=== PATIENT | female | born 1985 | race Caucasian/White ===

== ENCOUNTER 2016-06-09 20:24 | Emergency (ER) | payer BC ==
[~2016-06-09] VITALS: Ht 162.6 cm; Wt 49.0 kg
[~2016-06-09 20:24] MED LIST: OXYC-57 PO
[2016-06-09 20:33] VITALS: TEMP 37.4; Ht 162.6 cm; Wt 49.0 kg
[2016-06-09] MEDS ORDERED: LORAZEPAM 2 MG/ML 1 ML VIAL IV STA (20:41)
[2016-06-09 20:52] VITALS: O2SAT 98
[2016-06-09] MEDS ORDERED: AZAT50TA5 PO (21:14)
[2016-06-09] MEDS ORDERED: VEDO1INJ INJ (21:14)
[2016-06-09 21:27] LABS: BASO % 0.5 %; BASO ABS # 0.04 K/uL (0-0.2); COMPLETE YES; EOS % 0.5 %; HEMATOCRIT 38.1 % (37-47); IG% 0.1 %; LYMPH % 13.9 %; LYMPH ABS # 1.18 K/uL (1.2-3.4); MEAN CELL VOLUME 94.1 fL (80-100); MEAN CORPUSCULAR HEMOGLOBIN 32.8 pg (25-34); MEAN CORPUSCULAR HGB CONC 34.9 g/dl (32-36); MEAN PLATELET VOLUME 10.6 fL (7.4-10.4); MONO % 4.4 %; NEUT % 80.6 %; PLATELET COUNT 320 K/uL (130-400); RED BLOOD COUNT 4.05 M/uL (4.2-5.4); WHITE BLOOD COUNT 8.46 K/uL (4.8-10.8)
[2016-06-09 21:44] LABS: PREG INTERNAL NEGATIVE QC NEG CLEAR BACKGROUND; PREG INTERNAL POSITIVE QC POS CONTROL LINE
[2016-06-09 21:47] LABS: BUN/CREATININE RATIO 13.6 (10-20); CALCIUM 8.9 mg/dl (8.5-10.1); CREATININE 0.75 mg/dl (0.60-1.20); POTASSIUM 3.8 mmol/L (3.5-5.1)
[2016-06-09 21:57] LABS: THYROID STIMULATING HORMONE 3.33 uIu/ml (0.300-4.500)
--- NOTE | 2016-06-09 22:29 | DIAGNOSTIC IMAGING REPORT ---
CHEST 2 VIEWS ROUTINE CLINICAL HISTORY: Cough. Pneumonia. COMPARISON STUDY: No previous studies for comparison. FINDINGS: The cardiac and mediastinal contours are normal. There is no evidence of focal pulmonary consolidation. There is no evidence of failure. No pleural effusions are visualized.[ IMPRESSION: No active disease in the chest. Electronically signed by: Andres Carolina M.D. 06/09/2016 10:27 PM Dictated Date/Time: 06/09/2016 10:26 PM
[2016-06-09] MEDS ORDERED: ATIVAN 1MG HOMEPACK PO ONE (22:45)
[2016-06-09 22:51] VITALS: BP 110/62; PULSE 94; O2SAT 99
--- NOTE | 2016-06-09 23:21 | EMERGENCY ROOM VISIT NOTE ---
History Report prepared by Manuel: Mellissa Mitchell Under the Supervision of: Dr. Marciano Villarreal M.D. First contact with patient: 20:29 Chief Complaint: OTHER COMPLAINT Stated Complaint: ILLNESS History of Present Illness The patient is a 30 year old female who presents to the Emergency Room with complaints of intermittent episodes of chest pain over the past 2 weeks. She describes the discomfort as tightness. During the episodes of chest pain, she also typically feels like she cannot catch her breath, lightheadedness, and heart pounding. The episodes vary in time. Today, the patient had an episode that lasted about an hour. During today's episode, she also had 4th and 5th digit numbness of her right hand which was alarming to her, so she called an ambulance. Upon arrival, she does not have any chest pain. She notes that she has been shaking since arrival to the ER, which has never happened to her. The patient has a history of Crohn's disease, but no other medical problems. She is a week late for her infusion so she feels that her Crohn's may be starting to flare up, but it is not bothering her at this point. The patient does not have a history of panic attacks. She is not on control pills. She does not smoke. Denies recent immobilization or long travel. She is unsure if there is a family history of blood clots of heart attacks at a young age. She does not have a history of thyroid problems. The patient is currently on her menstrual period. The patient had a head cold about a month ago which has since resolved. Denies fever, abdominal pain, rectal bleeding, leg swelling or pain, or other complaints. Source of History: patient Onset: 2 weeks STRIPPER PRELIMINARY Position: chest Quality: other (tightness) Timing: intermittent Associated Symptoms: No abdominal pain, No fevers Note: Other complaints: can't catch breath, lightheaded, heart pounding, shaking Review of Systems See HPI for pertinent positives & negatives. A total of 10 systems reviewed and were otherwise negative. Past Medical & Surgical Medical Problems: (1) Crohn's disease Family History No pertinent family history stated. Social History Smoking Status: Never Smoker Marital Status: single Occupation Status: employed Current/Historical Medications Scheduled Azathioprine (Imuran), 100 MG PO DAILY Vedolizumab (Entyvio), 1 DOSE INJ [id number] Allergies Coded Allergies: No Known Allergies (Unverified Allergy, Mild, 11/15/06) Physical Exam Vital Signs Date Time Temp Pulse Resp B/P Pulse Ox O2 Delivery O2 Flow Rate FiO2 06/09/16 22:51 94 20 110/62 99 Room Air 06/09/16 21:28 92 06/09/16 21:25 94 20 109/70 100 Room Air 06/09/16 20:52 98 Room Air 06/09/16 20:33 37.4 114 20 118/66 98 Room Air Physical Exam Constitutional: Vital signs reviewed. Eyes: Pupils are equal round reactive to light. Conjunctiva are noninjected. ENT: Pharynx is clear without erythema or exudate. Mucous membranes are moist. Neck supple without meningeal signs. Respiratory: Clear to auscultation bilaterally. Breath sounds are equal bilaterally. Cardiovascular: Tachycardic rate at 105 and regular rhythm. No rubs or gallops. GI: Soft, nondistended and nontender. Bowel sounds are present. Musculoskeletal: No peripheral edema. No lower extremity tenderness. Integumentary: No cyanosis. Neurological: The patient is awake and alert. No focal deficits. Psychiatric: Anxious affect. Lower extremity and hand tremors. Medical Decision & Procedures ER Provider Diagnostic Interpretation: X-ray results as stated below per interpretation by me and the radiologist: CHEST 2 VIEWS ROUTINE CLINICAL HISTORY: Cough. Pneumonia. COMPARISON STUDY: No previous studies for comparison. FINDINGS: The cardiac and mediastinal contours are normal. There is no evidence of focal pulmonary consolidation. There is no evidence of failure. No pleural effusions are visualized.[ IMPRESSION: No active disease in the chest. Electronically signed by: Andres Carolina M.D. 06/09/2016 10:27 PM Dictated Date/Time: 06/09/2016 10:26 PM Laboratory Results 06/09/16 21:10 Red Blood Count 4.05, Mean Corpuscular Volume 94.1, Mean Corpuscular Hemoglobin 32.8, Mean Corpuscular Hemoglobin Concent 34.9, Mean Platelet Volume 10.6, Neutrophils (%) (Auto) 80.6, Lymphocytes (%) (Auto) 13.9, Monocytes (%) (Auto) 4.4, Eosinophils (%) (Auto) 0.5, Basophils (%) (Auto) 0.5, Neutrophils # (Auto) 6.82, Lymphocytes # (Auto) 1.18, Monocytes # (Auto) 0.37, Eosinophils # (Auto) 0.04, Basophils # (Auto) 0.04 06/09/16 21:10 Test 06/09/16 21:10 06/09/16 21:17 White Blood Count 8.46 K/uL (4.8-10.8) Red Blood Count 4.05 M/uL (4.2-5.4) Hemoglobin 13.3 g/dL (12.0-16.0) Hematocrit 38.1 % (37-47) Mean Corpuscular Volume 94.1 fL (80-100) Mean Corpuscular Hemoglobin 32.8 pg (25-34) Mean Corpuscular Hemoglobin Concent 34.9 g/dl (32-36) Platelet Count 320 K/uL (130-400) Mean Platelet Volume 10.6 fL (7.4-10.4) Neutrophils (%) (Auto) 80.6 % Lymphocytes (%) (Auto) 13.9 % Monocytes (%) (Auto) 4.4 % Eosinophils (%) (Auto) 0.5 % Basophils (%) (Auto) 0.5 % Neutrophils # (Auto) 6.82 K/uL (1.4-6.5) Lymphocytes # (Auto) 1.18 K/uL (1.2-3.4) Monocytes # (Auto) 0.37 K/uL (0.11-0.59) Eosinophils # (Auto) 0.04 K/uL (0-0.5) Basophils # (Auto) 0.04 K/uL (0-0.2) RDW Standard Deviation 44.0 fL (36.4-46.3) RDW Coefficient of Variation 12.8 % (11.5-14.5) Immature Granulocyte % (Auto) 0.1 % Immature Granulocyte # (Auto) 0.01 K/uL (0.00-0.02) Anion Gap 11.0 mmol/L (3-11) Est Creatinine Clear Calc Drug Dose 83.3 ml/min Estimated GFR () 122.2 Estimated GFR (Non- 105.5 BUN/Creatinine Ratio 13.6 (10-20) Calcium Level 8.9 mg/dl (8.5-10.1) Thyroid Stimulating Hormone (TSH) 3.330 uIu/ml (0.300-4.500) Free Thyroxine 1.11 ng/dl (0.80-1.60) Human Chorionic Gonadotropin, Qual NEG (NEG) Bedside D-Dimer 210 ng/mlFEU (0-450) Bedside Troponin I 0.000 ng/ml (0-0.045) Laboratory results as reviewed by me. Medications Administered Medications (Trade) Dose Ordered Sig/Amadou Route Start Time Stop Time Status Last Admin Dose Admin Lorazepam (Ativan Inj) 0.5 mg NOW STAT IV 06/09/16 20:41 06/09/16 20:44 DC 06/09/16 21:23 0.5 MG Lorazepam (Ativan 1MG Home Pack) 1 homepack UD ONCE PO 06/09/16 22:45 06/09/16 22:46 DC 06/09/16 23:00 1 HOMEPACK ECG Indication: chest pain Rate (beats per minute): 88 Rhythm: normal sinus Findings: no acute ischemic change, no ectopy ED Course 2034: The patient was evaluated in room B2. A complete history and physical exam was performed. 2040: Ordered Lorazepam 0.5 mg IV. 2234: I talked to the patient about test results. She was feeling better at this time. I recommended follow up with her doctor for further evaluation. I discussed use of Ativan. She will be discharged home. 2244: Ordered Lorazepam 1 homepack PO. Medical Decision This is a 30-year-old female presents with chest pain. Differential diagnosis includes anxiety, panic attack, pulmonary embolism, pericarditis, myocarditis, pleurisy. I did perform a limited focused review of portions of the patient's old chart on the electronic medical record. The patient has had no recent pertinent visits to this hospital. I did evaluate the patient as noted above. The patient is presenting with intermittent chest pain. She also has tremors and appears quite anxious. IV access was established. The patient was placed on a continuous threat monitoring analyst. I did treat the patient with IV Ativan. I did order and personally review the patient's 12-lead EKG and chest x-ray as described above. She has no acute ischemic changes on her twelve-lead EKG. There are no signs of pericarditis. Her mediastinum is not widened on chest x-ray. There is no pneumothorax. I did order and review the patient's blood work as noted in the electronic medical record. D-dimer and troponin are both negative. I did reassess the patient. She is feeling better. Her tremors have gone away. I did discuss the test results with the patient. At this time her symptoms seem most consistent with anxiety but I did recommend close follow up with her doctor for further evaluation and treatment. I did discharge patient with an Ativan home pack and discuss risks and benefits of this medication with her. She was discharged with her family in good condition. Impression Primary Impression: Acute chest pain Additional Impression: Anxiety related tremor Scribe Attestation The scribe's documentation has been prepared under my direct and personally reviewed by me in its entirety. I confirm that the note above accurately reflects all work, treatment, procedures, and medical decision making performed by me. Departure Information Dispostion Home / Self-Care Referrals No Doctor, Assigned (PCP) Patient Instructions A Signature Page, ED Chest Pain Atypical Unkn Cause, My [facility] Additional Instructions You have been examined and treated today on an emergency basis only. This is not a substitute for, or an effort to provide, complete comprehensive medical care. It is impossible to recognize and treat all injuries or illnesses in a single emergency department visit. It is therefore important that you follow up closely with your physician. Call as soon as possible for an appointment. Return for worsening symptoms or if you develop any other concerning symptoms.
== END 2016-06-09 22:52 | disposition home or self-care (01) ==
LOC: EDBD 20:24 → EDUNIT# 20:24 → C.EDB 20:25
DX: R07.9 Chest pain, unspecified (principal); G25.2 Other specified forms of tremor; F41.9 Anxiety disorder, unspecified; K50.90 Crohn's disease, unspecified, without complications; Z79.899 Other long term (current) drug therapy

== ENCOUNTER → 2016-09-19 | Outpatient (CLI) | payer BC ==
[~2016-09-19] MED LIST changes: +AZAT50TA5 PO; -OXYC-57 PO; +VEDO1INJ INJ
== END | disposition home or self-care (01) ==
LOC: C.LAB 07:46
PROVIDERS: ATTEND Family Medicine
DX: R53.83 Other fatigue (principal)